=== PATIENT | male | born 1955 | race Native Hawaiian/Other Pacific Islander ===

== ENCOUNTER 2019-11-26 11:56 | Emergency (ER) | payer SELFPAY ==
[2019-11-26] MEDS ORDERED: cloNIDine 0.2 MG TAB PO STA (12:55)
[2019-11-26 13:31] LABS: Basophils # (Auto) 0.1 K/mm3 (0.0-0.1); Basophils % (Auto) 0.7 % (0.0-1.8); Eosinophils # (Auto) 0.2 K/mm3 (0.0-0.4); Eosinophils % (Auto) 1.8 % (0.0-4.3); Hematocrit 38.9 % (35.5-45.6); Hemoglobin 13.1 gm/dl (11.8-15.2); Lymphocytes # (Auto) 2.8 K/mm3 (1.2-5.4); Lymphocytes % (Auto) 32.8 % (13.4-35.0); Mean Corpuscular HGB Conc 34 % (32-34); Mean Corpuscular Volume 88 fl (84-94); Monocytes # (Auto) 0.6 K/mm3 (0.0-0.8); Monocytes % (Auto) 6.5 % (0.0-7.3); Platelet Count 252 K/mm3 (140-440); Red Blood Count 4.41 M/mm3 (3.65-5.03); Red Cell Distribution Width 14.4 % (13.2-15.2)
--- NOTE | 2019-11-26 13:54 | Cat Scan Report ---
CT HEAD/BRAIN WO CON INDICATION / CLINICAL INFORMATION: Dizziness and headache. TECHNIQUE: All CT scans at this location are performed using CT dose reduction for ALARA by means of automated e xposure control. COMPARISON: None available. FINDINGS: There is mild generalized cerebral and cerebellar atrophy. There are minimal small vessel ischemic ch anges at the junction of the left internal capsule and thalamus, of uncertain age. There is minimal n onspecific calcification in the globus pallidus bilaterally. No other focal lesion is seen. There is no evidence of mass effect or intracranial hemorrhage. No evidence of acute major vessel occlusion is seen. The calvarium is intact. The visualized paranasal sinuses and mastoid air cells are clear. IMPRESSION: Minimal small vessel ischemic changes near the junction of the internal capsule and thala mus are of uncertain age. No other significant abnormality. Signer Name: Elan Schwartz MD Signed: 11/26/2019 1:49 PM Workstation Name: [id number]
[2019-11-26 14:03] LABS: Albumin 3.6 g/dL (3.9-5); Calcium 9.9 mg/dL (8.4-10.2)
--- NOTE | 2019-11-26 15:38 | Emergency Department Report ---
ED Headache HPI - General Chief Complaint: High BP Stated Complaint: HBP/DIABETIC Time Seen by Provider: 11/26/19 12:55 - History of Present Illness Initial Comments: 64-year-old male with past medical history of hypertension and diabetes who is visiting from [place] presents emergency department complaining of a couple day history of headache associated with occasional dizziness and has suspicion of a hypertensive issue. He reports no palpitations or chest pain. No blurred blurred blurred vision. The headache is dull and fluctuates have been in various portions of the head when present lasting for a matter of minutes before resolving and the dizziness is episodic in relatively random. Reports no head trauma. No change in his hypertensive medication but he does think it is time for an adjustment. Quality: mild Head Injury Location: frontal, temporal Recent Head Trauma: no recent headache/trauma Associated Symptoms: denies: fatigue, facial pain, nausea/vomiting, nasal congestion, seizures, sinus infection Allergies/Adverse Reactions: Allergies Penicillins Adverse Reaction (Verified 11/26/19 12:05) Unknown ED Review of Systems ROS: Stated complaint: HBP/DIABETIC Other details as noted in HPI Comment: All other systems reviewed and negative ED Past Medical Hx - Past Medical History Previous Medical History?: Yes Hx Hypertension: Yes Hx Diabetes: Yes - Surgical History Past Surgical History?: Yes Additional Surgical History: back surgery - Social History Smoking Status: Current Every Day Smoker Substance Use Type: None ED Physical Exam - General Limitations: No Limitations General appearance: alert, in no apparent distress - Head Head exam: Present: atraumatic, normocephalic - Eye Eye exam: Present: normal appearance, EOMI, other (Negative funduscopic examination). Absent: nystagmus - ENT ENT exam: Present: mucous membranes moist - Neck Neck exam: Present: normal inspection, full ROM. Absent: tenderness, meningismus, lymphadenopathy - Respiratory Respiratory exam: Present: normal lung sounds bilaterally. Absent: respiratory distress - Cardiovascular Cardiovascular Exam: Present: regular rate, normal rhythm. Absent: bradycardia, tachycardia, systolic murmur, diastolic murmur, rubs, gallop - GI/Abdominal GI/Abdominal exam: Present: soft, normal bowel sounds. Absent: distended, guarding - Rectal Rectal exam: Present: deferred. Absent: normal inspection, normal rectal tone - Extremities Exam Extremities exam: Present: normal inspection, full ROM, normal capillary refill - Back Exam Back exam: Present: normal inspection. Absent: CVA tenderness (R), CVA ten derness (L) - Neurological Exam Neurological exam: Present: alert, oriented X3, CN II-XII intact, normal gait, reflexes normal. Absent: motor sensory deficit - Psychiatric Psychiatric exam: Present: normal affect, normal mood. Absent: anxious, flat affect, manic - Skin Skin exam: Present: warm, dry, intact, normal color. Absent: rash ED Course Vital Signs 11/26/19 11/26/19 11/26/19 12:05 12:40 13:04 Temperature 98.1 F Pulse Rate 77 66 94 H Respiratory 18 97 H Rate Blood Pressure 231/103 209/94 Blood Pressure 206/94 [Right] O2 Sat by Pulse 100 Oximetry 11/26/19 11/26/19 15:11 16:15 Temperature Pulse Rate 59 L 68 Respiratory 18 Rate Blood Pressure 141/74 Blood Pressure 142/69 [Right] O2 Sat by Pulse 100 99 Oximetry ED Medical Decision Making - Lab Data Result diagrams: 11/26/19 13:02 11/26/19 13:02 - EKG Data EKG shows normal: sinus rhythm Rate: normal - EKG Data Interpretation: normal EKG 11/26/19 22:15 Heart rate 64 no depravation normal FL and QT interval - Radiology Data Radiology results: report reviewed Referring Physician:KENIA TRANPatient Name:CONRADO OLSONPatient ID:[id number] of :[id number]:M aleAccession:[id number] Date:[id number] Status:[place] [address] Cat Scan Report Signed Patient: CONRADO OLSON MR#: [id number] : 1955 Acct:[id number] Age/Sex: 64 / M ADM Date: 11/26/19 Loc: ED Attending Dr: Ordering Physician: MECHE MATOS Date of Service: 11/26/19 Procedure(s): CT head/brain wo con Accession Number(s): [id number] cc: MECHE MATOS CT HEAD/BRAIN WO CON INDICATION / CLINICAL INFORMATION: Dizziness and headache. TECHNIQUE: All CT scans at this location are performed using CT dose reduction for ALARA by means of automated exposure control. COMPARISON: None available. FINDINGS: There is mild generalized cerebral and cerebellar atrophy. There are minimal small vessel ischemic changes at the junction of the left internal capsule and thalamus, of uncertain age. There is minimal nonspecific calcification in the globus pallidus bilaterally. No other focal lesion is seen. There is no evidence of mass effect or intracranial hemorrhage. No evidence of acute major vessel occlusion is seen. The calvarium is intact. The visualized paranasal sinuses and mastoid air cells are clear. IMPRESSION: Minimal small vessel ischemic changes near the junction of the internal capsule and thalamus are of uncertain age. No other significant abnormality. Signer Name: Elan Schwartz MD Signed: 11/26/2019 1:49 PM Workstation Name: [id number] Transcribed By: RT Dictated By: Elan Schwartz MD Electronically Authenticated By: Elan Schwartz MD Signed Date/Time: 11/26/191348 DD/ 44 TD/TT: - Medical Decision Making This patient presents with a headache most consistent with hypertensive. Differential diagnosis includes migraine versus tension type headache. No headache red flags. Neurologic exam without evidence of meningismus, focal neurologic findings.Based on the patient's history and physical there is very low clinical suspicion for significant intracranial pathology. The headache was NOT sudden onset, NOT maximal at onset, there are NO neurologic findings, the patient does NOT have a fever, the patient does NOT have any jaw claudication, the patient does NOT endorse a clotting disorder, patient DENIES any trauma or eye pain and the headache is NOT associated with dizziness or ataxia. Presentation not consistent with acute intracranial bleed to include SAH (lack of risk factors, headache history). Presentation not consistent with acute SOAP TENDER infection to include meningitis or brain abscess, Temporal arteritis unlikely, as is acute angle closure glaucoma given history and physical findings. Presentation not consistent with other acute, emergent causes of headache at this time. Plan to treat symptomatically with pain medication. No indication for imaging/LP at this time. Plan: pain medication, CT brain was normal, serial reassessment blood pressure improved to the 140s over 90s CT scan was normal and his laboratory data was brought to left of the benign advised on the importance of medication compliance and follow-up with his primary care provider for possible medication adjustment is been informed on when to return to the emergency department as well. Expressed a clear understanding he is ambulatory no acute distress speaking in full sentences Critical care attestation.: If time is entered above; I have spent that time in minutes in the direct care of this critically ill patient, excluding procedure time. ED Disposition Clinical Impression: Hypertension, Dizziness, Cephalgia Disposition: DC-01 TO HOME OR SELFCARE Is pt being admited?: No Does the pt Need Aspirin: No Condition: Stable Instructions: Acute Headache (ED), Hypertension (ED) Referrals: PRIMARY CAREMD [Primary Care Provider] - 3-5 Days AXEL COY MD [Staff Physician] - 3-5 Days
[2019-11-26 16:15] VITALS: BP 142/69
== END 2019-11-26 16:13 | disposition home or self-care (01) ==
LOC: ED 11:56
DX: I10 Essential (primary) hypertension (principal); E11.9 Type 2 diabetes mellitus without complications; F17.200 Nicotine dependence, unspecified, uncomplicated; Z88.0 Allergy status to penicillin
CPT/HCPCS: 36415; 70450; 80053; 85025; 93005